=== PATIENT | female | born 1985 | race Caucasian/White ===

== ENCOUNTER 2018-12-31 14:14 | Emergency (ER) | payer BC ==
[2018-12-31] MEDS ORDERED: HYDROmorphone 1 MG/ML Syringe IVPUSH ONE (14:20)
[2018-12-31] MEDS ORDERED: Ondansetron 4 MG/2 ML SDV IVPUSH ONE (14:20)
[2018-12-31] MEDS ORDERED: Sodium Chloride 0.9% 1,000 ML IV ONE (14:21)
[2018-12-31] MEDS ORDERED: Sodium Chloride 0.9% 10 ML Syringe FLUSH PRN (14:21)
[2018-12-31] MEDS ORDERED: HYDROmorphone 1 MG/ML Syringe ONE (14:24)
[2018-12-31] MEDS ORDERED: Ondansetron 4 MG/2 ML SDV ONE (14:24)
--- NOTE | 2018-12-31 14:30 | EDM.PDOC ---
ED HPI GENERAL MEDICAL PROBLEM - General Chief Complaint: Gastrointestinal Problem Stated Complaint: epigastric pain Time Seen by Provider: 12/31/18 14:15 Source of Information: Reports: Patient History Limitations: Reports: No Limitations - History of Present Illness INITIAL COMMENTS - FREE TEXT/NARRATIVE: Patient comes in the emergency department with complaint of epigastric pain. Patient does have a known history of gallstones and is scheduled to have surgery later this next month. She states the severe abdominal discomfort started approximately 15 minutes prior to arrival. She states that the symptoms are very characteristic of when her gallstones first presented and she has found out that she had them. She states that she is nauseated severe epigastric pain and is unable to sit upright due to the discomfort. Denies any recent fevers or illnesses. Last ate 1-2 hours ago and had eggs and pumpkin bread. Describes it as sharp shooting. Nothing makes it better or worse. Did not take any medications for the discomfort prior to the arrival in the ER. Onset: Sudden Location: Reports: Abdomen Quality: Reports: Sharp, Stabbing, Throbbing Improves with: Reports: None Worsens with: Reports: None Context: Reports: Other Associated Symptoms: Reports: Loss of Appetite, Nausea/Vomiting Upper Epigastric Pain Score (Numeric/FACES): 2 - Related Data Allergies Allergy/AdvReac Type Severity Reaction Status Date / Time Penicillins Allergy Rash Verified 12/31/18 14:38 Home Meds: Home Meds . [No Known Home Meds] 12/31/18 [History] ED ROS GENERAL - Review of Systems Review Of Systems: ROS reveals no pertinent complaints other than HPI. Constitutional: Reports: No Symptoms HEENT: Reports: No Symptoms Respiratory: Reports: No Symptoms Cardiovascular: Reports: No Symptoms Endocrine: Reports: No Symptoms GI/Abdominal: Reports: Abdominal Pain, Decreased Appetite, Nausea : Reports: No Symptoms Musculoskeletal: Reports: No Symptoms Skin: Reports: No Symptoms Neurological: Reports: No Symptoms Psychiatric: Reports: No Symptoms Hematologic/Lymphatic: Reports: No Symptoms ED EXAM, GI/ABD - Physical Exam Exam: See Below Exam Limited By: No Limitations General Appearance: Alert, WD/WN, Moderate Distress (severe pain ) Respiratory/Chest: No Respiratory Distress, Lungs Clear, Normal Breath Sounds, No Accessory Muscle Use, Chest Non-Tender Cardiovascular: Normal Peripheral Pulses, Regular Rate, Rhythm, No Edema, No Murmur GI/Abdominal Exam: Normal Bowel Sounds, No Organomegaly, No Abnormal Bruit, No Mass, Guarding, Tender Back Exam: Normal Inspection, Full Range of Motion Extremities: Normal Inspection, Normal Range of Motion, Normal Capillary Refill Neurological: Alert, Oriented Psychiatric: Normal Affect, Normal Mood Skin Exam: Warm, Dry, Intact, Normal Color Course - Vital Signs Last Recorded V/S: Last Vital Signs Temp 35.5 C 12/31/18 14:15 Pulse 82 12/31/18 14:15 Resp 16 12/31/18 14:15 BP 135/76 12/31/18 14:15 Pulse Ox 100 12/31/18 14:15 - Orders/Labs/Meds Orders: Active Orders 24 hr Category Date Time Status Sodium Chloride 0.9% [Saline Flush] Med 12/31/18 14:21 Active 10 ml FLUSH ASDIRECTED PRN Peripheral IV Insertion Adult [OM.PC] Stat Oth 12/31/18 14:21 Ordered Medication Orders Sodium Chloride (Saline Flush) 10 ml FLUSH ASDIRECTED PRN PRN Reason: Keep Vein Open Labs: Laboratory Tests 12/31/18 12/31/18 Range/Units 14:36 14:36 WBC 4.5 (4.0-10.0) x10^3/uL RBC 3.62 L (4.00-5.50) x10^6/uL Hgb 10.5 L (12.0-16.0) g/dL Hct 32.0 L (33.0-47.0) % MCV 88.4 (78.0-93.0) fL MCH 29.0 (26.0-32.0) pg MCHC 32.8 (32.0-36.0) g/dL RDW Coeff of Gamal 13.5 (10.0-15.0) % Plt Count 235 (130-400) x10^3/uL Neut % (Auto) 51.0 (50.0-80.0) % Lymph % (Auto) 33.8 (25.0-50.0) % [place] % (Auto) 11.9 H (2.0-11.0) % Eos % (Auto) 2.4 (0.0-4.0) % Baso % (Auto) 0.9 (0.2-1.2) % ESR 11 (0-21) mm/hr Sodium 142 (136-145) mmol/L Potassium 3.5 (3.5-5.1) mmol/L Chloride 106 (98-107) mmol/L Carbon Dioxide 24 (21-32) mmol/L Anion Gap 15.5 (10-20) mmol/L BUN 10 (7-18) mg/dL Creatinine 0.9 (0.55-1.02) mg/dL Est Cr Clr Drug Dosing 90.53 mL/min Estimated GFR (MDRD) > 60 Glucose 116 H (74-106) mg/dL Calcium 8.5 (8.5-10.1) mg/dL Corrected Calcium 8.74 (8.5-10.1) mg/dL Total Bilirubin 0.5 (0.2-1.0) mg/dL AST 18 (15-37) U/L ALT 25 (14-59) U/L Alkaline Phosphatase 62 (46-116) U/L Creatine Kinase 136 (26-192) U/L Total Protein 6.9 (6.4-8.2) g/dL Albumin 3.7 (3.4-5.0) g/dL Globulin 3.2 Albumin/Globulin Ratio 1.16 Amylase 50 (25-115) U/L Lipase 169 (73-393) U/L Meds: Medications Generic Name Dose Route Start Last Admin Trade Name Freq PRN Reason Stop Dose Admin Sodium Chloride 10 ml 12/31/18 14:21 Saline Flush FLUSH ASDIRECTED PRN Keep Vein Open Discontinued Medications Generic Name Dose Route Start Last Admin Trade Name Freq PRN Reason Stop Dose Admin Hydromorphone HCl 1 mg 12/31/18 14:20 12/31/18 14:23 Dilaudid IVPUSH 12/31/18 14:21 1 mg ONETIME ONE Administration Hydromorphone HCl Confirm 12/31/18 14:24 12/31/18 14:24 Dilaudid Administered 12/31/18 14:25 Not Given Dose 1 mg .ROUTE .STK-MED ONE Sodium Chloride 1,000 mls @ 1,000 mls/hr 12/31/18 14:21 12/31/18 14:26 Normal Saline IV 12/31/18 15:20 1,000 mls/hr ONETIME ONE Administration Ondansetron HCl Confirm 12/31/18 14:24 12/31/18 14:25 Zofran Administered 12/31/18 14:25 Not Given Dose 4 mg .ROUTE .STK-MED ONE Ondansetron HCl 4 mg 12/31/18 14:20 12/31/18 14:23 Zofran IVPUSH 12/31/18 14:21 4 mg ONETIME ONE Administration - Re-Assessments/Exams Free Text/Narrative Re-Assessment/Exam: 12/31/18 15:51 feels much better after medication and fluids. Almost back to baseline. VSS. Pt would like to go home and rest. Pt's is with the pt. Departure - Departure Time of Disposition: 16:00 Disposition: Home, Self-Care 01 Condition: Good Clinical Impression: Abdominal pain Cholelithiasis Qualifiers: Cholelithiasis location: gallbladder Cholecystitis presence: without cholecystitis Biliary obstruction: without biliary obstruction Qualified Code(s) : K80.20 - Calculus of gallbladder without cholecystitis without obstruction - Discharge Information *PRESCRIPTION DRUG MONITORING PROGRAM REVIEWED*: Not Applicable *COPY OF PRESCRIPTION DRUG MONITORING REPORT IN PATIENT AVA: Not Applicable Instructions: Cholelithiasis, Managing Pain Without Opioids, Pain Medicine Instructions, [id number] Forms: ED Department Discharge Additional Instructions: 1. rest 2. increase water intake 3. Can take over the counter Tylenol or ibuprofen for pain management 4. Follow up with your PCP if not better 5. Keep your scheduled surgery for February 01. 6. Activity and diet as tolerated 7. CT scan revealed ovarian cyst measuring <5cm, also cholelithiasis without obstructions. Moderate retained stool 8. Labs did not show any abnormalities of concerns 9. Take MiraLAX to help with constipation 10. Call with any questions and concerns - My Orders Last 24 Hours: My Active Orders 12/31/18 14:21 Sodium Chloride 0.9% [Saline Flush] 10 ml FLUSH ASDIRECTED PRN Peripheral IV Insertion Adult [OM.PC] Stat - Assessment/Plan Last 24 Hours: My Active Orders 12/31/18 14:21 Sodium Chloride 0.9% [Saline Flush] 10 ml FLUSH ASDIRECTED PRN Peripheral IV Insertion Adult [OM.PC] Stat Assessment:: 1. abdominal pain Plan: 1. Labs completed in ER. Results reviewed with the pt 2. CT scan completed in ER. Results reviewed with the pt- bilateral adnexal cyst with the largest measuring 4.9cm, cholelithiasis without acute cholecystitis, moderate amount of retained stools within the colon. 3. IV and fluids given in ER 4. Zofran given for nausea in the ER 5. Dilaudid given for the pain in the ER 6. Pt feeling much better and would like to go home and rest. is at the bedside to help if assistance is needed at home. 7. Education regarding follow up, activity, diet, and OTC pain medication provided. 8. All questions and concerns addressed prior to discharge.
[2018-12-31 15:02] LABS: CHLORIDE,CL 106 mmol/L (98-107); SODIUM,NA 142 mmol/L (136-145)
[2018-12-31 15:04] LABS: ANION GAP 15.5 mmol/L (10-20)
--- NOTE | 2018-12-31 15:42 | CT ---
[id number] CT/CT Abdomen Pelvis WO IV EXAM: CT Abdomen Pelvis WO IV CLINICAL DATA: MID-EPIGASRIC PAIN, GALLSTONE SURGERY PLANNED. COMPARISON STUDY: None. FINDINGS: Lung bases are clear. There is focal fat along the falciform ligament. The liver is otherwise unremarkable. The spleen, pancreas, adrenal glands are unremarkable. Punctate nonobstructing right renal calculus. No hydronephrosis or hydroureter. Cholelithiasis without evidence of acute cholecystitis. No bowel obstruction or inflammation. The appendix is visualized and appears normal. Moderate amount retained stool within the colon. No lymphadenopathy, free fluid, or pneumoperitoneum. Bilateral adnexal cysts. The largest measures up to 4.9 cm. Scattered changes of spondylosis the spine. No fracture or osseous lesion. IMPRESSION: 1. Bilateral adnexal cysts with the largest measuring up to 4.9 cm. 2. Cholelithiasis without evidence of acute cholecystitis. 3. Moderate amount of retained stool within the colon. Correlate for constipation. Aidan Brian DO 12/31/18 1541 Thank you for allowing us to participate in the care of your patient.
== END 2018-12-31 16:00 | disposition home or self-care (01) ==
LOC: VM.ED 14:14
DX: K80.20 Calculus of gallbladder without cholecystitis without obstruction (principal); Z88.0 Allergy status to penicillin
CPT/HCPCS: 36415; 74176; 80053; 82150; 82550; 83690; 85025; 85652; 96361; 96374; 96375; 99284-25; J1170; J2405; J7030